=== PATIENT | female | born 1955 | race Caucasian/White ===

== ENCOUNTER 2016-12-31 16:21 | Emergency (ER) | payer BC, OTHER ==
--- NOTE | 2016-12-31 17:06 | EDM.PDOC ---
ED HPI GENERAL MEDICAL PROBLEM - General Chief Complaint: SAUTE CHEF Problem Stated Complaint: ABNORMAL VAGINAL BLEEDING Time Seen by Provider: 12/31/16 17:05 Source of Information: Reports: Patient History Limitations: Reports: No Limitations - History of Present Illness INITIAL COMMENTS - FREE TEXT/NARRATIVE: 61-year-old female presents for evaluation and treatment of possible vaginal bleeding. On further investigation this sounds more like it is more hematuria. Reports that she only has appreciated bleeding with urination. She reports that the symptoms started suddenly today. She reports malaise, fatigue and headaches for the last couple of weeks. She also reports back pain but reports that she has chronic back pain and back surgeries, nothing out the normal. She denies any fevers, nausea, vomiting, abdominal pain or any dysuria. Patient had a hysterectomy in 2004. She reports that her ovaries are still in place. - Related Data Allergies Allergy/AdvReac Type Severity Reaction Status Date / Time pork derived (porcine) Allergy Bleeding Verified 12/31/16 16:27 red meat Allergy Bleeding Uncoded 12/31/16 16:27 Home Meds: Home Meds Aspirin [Ecotrin] 81 mg PO DAILY 12/31/16 [History] Past Medical History Musculoskeletal History: Reports: Back Pain, Chronic, Other (See Below) Other Musculoskeletal History: back surgery - Past Surgical History Female Surgical History: Reports: Hysterectomy Social & Family History - Tobacco Use Smoking Status *Q: Unknown Ever Smoked ED ROS GENERAL - Review of Systems Review Of Systems: See Below Constitutional: Reports: Malaise, Fatigue. Denies: Fever, Chills GI/Abdominal: Denies: Abdominal Pain, Nausea, Vomiting : Reports: Hematuria. Denies: Dysuria Musculoskeletal: Reports: Back Pain (chronic, no change from baseline) Neurological: Reports: Headache ED EXAM, RENAL/ - Physical Exam Exam: See Below Exam Limited By: No Limitations General Appearance: Alert, WD/WN, No Apparent Distress Ears: Normal External Exam Nose: Normal Inspection Throat/Mouth: Normal Inspection, Normal Voice, No Airway Compromise Respiratory/Chest: No Respiratory Distress, Lungs Clear, Normal Breath Sounds Cardiovascular: Normal Peripheral Pulses, Regular Rate, Rhythm, No Murmur GI/Abdominal: Normal Bowel Sounds, Soft, Non-Tender (Female) Exam: Normal External Exam, Normal Speculum Exam. No: Vaginal Bleeding Neurological: Alert, Oriented, Normal Cognition Psychiatric: Normal Affect, Normal Mood Skin Exam: Warm, Dry, Normal Color Course - Vital Signs Last Recorded V/S: Last Vital Signs Temp 36.7 C 12/31/16 16:28 Pulse 76 12/31/16 16:28 Resp BP Pulse Ox 97 12/31/16 16:28 - Orders/Labs/Meds Orders: Active Orders 24 hr Category Date Time Status Pelvic Exam, Set Up [RC] ASDIRECTED Care 12/31/16 16:44 Active CULTURE URINE [RM] Stat Lab 12/31/16 16:30 Received Labs: Laboratory Tests 12/31/16 12/31/16 12/31/16 Range/Units 16:30 17:43 17:43 WBC 13.28 H (3.98-10.04) K/mm3 RBC 3.47 L (3.98-5.22) M/mm3 Hgb 11.2 (11.2-15.7) gm/L Hct 33.3 L (34.1-44.9) % MCV 96.0 H (79.4-94.8) fl MCH 32.3 H (25.6-32.2) pg MCHC 33.6 (32.2-35.5) g/dl RDW Std Deviation 43.7 (36.4-46.3) fL Plt Count 317 (182-369) K/mm3 MPV 9.1 L (9.4-12.3) fl Neut % (Auto) 78.5 H (34.0-71.1) % Lymph % (Auto) 13.1 L (19.3-51.7) % [place] % (Auto) 7.2 (4.7-12.5) % Eos % (Auto) 0.8 (0.7-5.8) Baso % (Auto) 0.2 (0.1-1.2) % Neut # (Auto) 10.45 H (1.56-6.13) K/mm3 Lymph # (Auto) 1.74 (1.18-3.74) K/mm3 [place] # (Auto) 0.95 H (0.24-0.36) K/mm3 Eos # (Auto) 0.10 (0.04-0.36) K/mm3 Baso # (Auto) 0.02 (0.01-0.08) K/mm3 Sodium 145 (136-145) mEq/L Potassium 3.2 L (3.5-5.1) mEq/L Chloride 108 H (98-107) mEq/L Carbon Dioxide 27 (21-32) mEq/L Anion Gap 13.2 (5-15) BUN 16 (7-18) mg/dL Creatinine 0.8 (0.55-1.02) mg/dL Est Cr Clr Drug Dosing TNP Estimated GFR (MDRD) > 60 (>60) mL/min BUN/Creatinine Ratio 20.0 H (14-18) Glucose 105 (80-115) mg/dL Calcium 8.9 (8.5-10.1) mg/dL Total Bilirubin 0.4 (0.2-1.0) mg/dL AST 19 (15-37) U/L ALT 20 (14-59) U/L Alkaline Phosphatase 73 (46-116) U/L Total Protein 7.2 (6.4-8.2) g/dl Albumin 3.7 (3.4-5.0) g/dl Globulin 3.5 gm/dL Albumin/Globulin Ratio 1.1 (1-2) Urine Color Red H (Yellow) Urine Appearance Cloudy H (Clear) Urine pH 5.0 (5.0-8.0) Ur Specific [place] 1.015 (1.005-1.030) Urine Protein 3+ H (Negative) Urine Glucose (UA) Trace H (Negative) Urine Ketones 3+ H (Negative) Urine Occult Blood 3+ H (Negative) Urine Nitrite Negative (Negative) Urine Bilirubin 3+ H (Negative) Urine Urobilinogen 4.0 H (0.2-1.0) Ur Leukocyte Esterase 3+ H (Negative) Urine RBC Too numerous to cnt H (0-5) /hpf Urine WBC 10-20 H (0-5) /hpf Ur Epithelial Cells 0-5 (0-5) /hpf Urine Bacteria Moderate H (FEW) /hpf Urine Mucus Not seen (FEW) /hpf - Re-Assessments/Exams Free Text/Narrative Re-Assessment/Exam: 12/31/16 18:28 I reviewed the lab results with the patient. Her urine is sent for culture. Patient has a urinary tract infection. I will start her on Bactrim twice a day for 7 days. Follow-up with her primary care provider for symptoms do not improve with the Bactrim. Departure - Departure Time of Disposition: 18:28 Disposition: Home, Self-Care 01 Condition: Fair Clinical Impression: Urinary tract infection - Discharge Information Instructions: Urinary Tract Infection, Adult, [id number] Referrals: Ferdinand Carr MD [Primary Care Provider] - Forms: ED Department Discharge Additional Instructions: bactrim 1 tab PO bid x 7 days prescription given from [facility] Take the Bactrim as prescribed. 1 tab twice a day for 7 days. make sure you are drinking plenty of fluids. Follow up with your primary care provider if your symptoms do not improve within 1 week. Please return to the ER if your symptoms change or worsen. - My Orders Last 24 Hours: My Active Orders 12/31/16 16:30 CULTURE URINE [RM] Stat 12/31/16 16:44 Pelvic Exam, Set Up [RC] ASDIRECTED - Assessment/Plan Last 24 Hours: My Active Orders 12/31/16 16:30 CULTURE URINE [RM] Stat 12/31/16 16:44 Pelvic Exam, Set Up [RC] ASDIRECTED
== END 2016-12-31 18:40 | disposition home or self-care (01) ==
LOC: JD.ED 16:21
DX: N39.0 Urinary tract infection, site not specified (principal); Z79.82 Long term (current) use of aspirin
CPT/HCPCS: 36415; 80053; 81001; 85025; 87086; 87088; 87186; 99283

== ENCOUNTER 2017-05-06 20:13 | Emergency (ER) | payer OTHER ==
[2017-05-06] MEDS ORDERED: HYDROmorphone 1 MG/ML Syringe IVPUSH ONE ×2 (20:47→23:07)
--- NOTE | 2017-05-06 20:47 | EDM.PDOC ---
ED HPI GENERAL MEDICAL PROBLEM - General Chief Complaint: Abdominal Pain Stated Complaint: COLON PROBLEMS Time Seen by Provider: 05/06/17 20:40 Source of Information: Reports: Patient History Limitations: Reports: No Limitations - History of Present Illness INITIAL COMMENTS - FREE TEXT/NARRATIVE: 61-year-old female presents to the ED with increasing diffuse lower abdominal pain over the last several days. She states she's been having lower abdominal pain primarily in the left lower quadrant off and on for the better part of 2 weeks. She went to the clinic on Sunday as the pain was worsening and had x- rays and labs done. It was felt that she had diverticulitis clinically and she' s had this apparently in the past on at least 2 occasions. She was therefore started on Cipro and Flagyl orally. Over the last 36 hours pain has increased in intensity with loss of appetite. No noted fever or chills. She cannot stand erect walk. Every bump in the road in the way to the hospital hurt her lower abdomen. He states she's not passing any flatus per rectum for the last 8 hours. Spelled the wound was this morning and was loose without blood. One every 4 hours. Previous abdominal surgery includes total abdominal hysterectomy but both ovaries were retained. No pain in her back. Pain is across the lower abdomen and she is able to localize it well to the left lower quadrant. Onset: Gradual Onset Date: 04/26/17 (She's been having intermittent lower abdominal pain for the last 2 weeks. It got much worse 5 days ago and she attended the clinic as an outpatient on Sunday, May 04.) Duration: Day(s):, Constant, Getting Worse Location: Reports: Abdomen (Left lower quadrant and diffuse across both suprapubic and right lower quadrant of the abdomen.) Quality: Reports: Ache, Other Severity: Severe (Worse with movement or deep breathing or coughing. Currently pain is 8 out of 10.) Improves with: Reports: Rest (Better if she lies on her right side.) Worsens with: Reports: Other (Coughing), Movement Context: Denies: Activity, Exercise, Lifting, Sick Contact, Trauma, Other Associated Symptoms: Reports: Loss of Appetite, Nausea/Vomiting (Nausea without vomiting she states the nausea predated the start of use of Flagyl.). Denies: No Other Symptoms, Confusion, cough w sputum, Diaphoresis, Fever/Chills, Headaches, Rash Treatments [employer]: Reports: Other (see below) (Currently on Flagyl and Cipro for suspect diverticulitis) Abdominal Pain Score (Numeric/FACES): 10 - Related Data Allergies Allergy/AdvReac Type Severity Reaction Status Date / Time pork derived (porcine) Allergy Bleeding Verified 05/06/17 20:22 red meat Allergy Bleeding Uncoded 05/06/17 20:22 Home Meds: Home Meds Ciprofloxacin HCl [Cipro] 500 mg PO BID 05/06/17 [History] metroNIDAZOLE [Flagyl] 500 mg PO TID 05/06/17 [History] Past Medical History Gastrointestinal History: Reports: Other (See Below) Other Gastrointestinal History: diverticulitis Musculoskeletal History: Reports: Back Pain, Chronic, Other (See Below) Other Musculoskeletal History: back surgery - Past Surgical History GI Surgical History: Reports: Colonoscopy Female Surgical History: Reports: Hysterectomy Social & Family History - Tobacco Use Smoking Status *Q: Never Smoker - Caffeine Use Caffeine Use: Reports: Coffee - Recreational Drug Use Recreational Drug Use: No - Living Situation & Occupation Living situation: Reports: Occupation: Employed ED ROS GENERAL - Review of Systems Review Of Systems: See Below Constitutional: Reports: Malaise, Weakness, Fatigue, Decreased Appetite, Weight Loss. Denies: Fever, Chills HEENT: Reports: No Symptoms Respiratory: Reports: No Symptoms Cardiovascular: Reports: No Symptoms Endocrine: Reports: Fatigue GI/Abdominal: Reports: Abdominal Pain (See history present illness), Diarrhea ( Loose stools this morning. No blood), Nausea. Denies: Vomiting : Reports: No Symptoms Musculoskeletal: Reports: No Symptoms Skin: Reports: No Symptoms Neurological: Reports: No Symptoms Psychiatric: Reports: No Symptoms Hematologic/Lymphatic: Reports: No Symptoms Immunologic: Reports: No Symptoms ED EXAM, GI/ABD - Physical Exam Exam: See Below Exam Limited By: No Limitations General Appearance: Alert, WD/WN, Mild Distress (Looks to be in significant discomfort.) Eyes: Bilateral: Normal Appearance (No jaundice.) Throat/Mouth: Other Head: Atraumatic, Normocephalic (Tongue is dry and coated.) Neck: Normal Inspection, Supple, Non-Tender, Full Range of Motion. No: Lymphadenopathy (L), Lymphadenopathy (R) Respiratory/Chest: No Respiratory Distress, Lungs Clear, Normal Breath Sounds, Chest Non-Tender Cardiovascular: Normal Peripheral Pulses, Regular Rate, Rhythm, No Edema, No Gallop, No Murmur, No Rub GI/Abdominal Exam: Guarding (Left lower quadrant), Rebound ( evidence of peritonitis.), Tender (Marked tenderness left lower quadrant and then with guarding rebound tenderness and), Abnormal Bowel Sounds (Hypoactive bowel sounds.), Other (Clinically has an acute abdomen. Localizes to the left lower quadrant therefore highly suspect for sigmoid diverticulitis) Back Exam: Normal Inspection, Full Range of Motion, CVA Tenderness (L) (Mild tenderness left costovertebral angle.). No: CVA Tenderness (R) Extremities: Normal Inspection, Normal Range of Motion, Non-Tender, No Pedal Edema Neurological: Alert, Oriented, CN II-XII Intact, Normal Cognition Psychiatric: Normal Affect, Normal Mood Skin Exam: Warm, Dry, Intact, Normal Color, No Rash EKG INTERPRETATION EKG Date: 05/06/17 Time: 21:20 Rhythm: NSR Rate (Beats/Min): 65 [place]: Normal P-Wave: Present QRS: Other (There is a near Q-wave V1 and V2 and V3. Consider old anteroseptal myocardial infarction) ST-T: Normal QT: Prolonged (Prolonged for rate.) EKG Interpretation Comments: Abnormal ECG Course - Vital Signs Last Recorded V/S: Last Vital Signs Temp 36.8 C 05/07/17 00:18 Pulse 68 05/06/17 20:22 Resp 16 05/07/17 00:18 BP 127/84 05/07/17 00:18 Pulse Ox 94 L 05/07/17 00:18 - Orders/Labs/Meds Orders: Active Orders 24 hr Category Date Time Status EKG Documentation Completion [RC] STAT Care 05/06/17 20:49 Inactive EKG Documentation Completion [RC] STAT Care 05/06/17 20:51 Active Abdomen 1V Flat [CR] Stat Exams 05/06/17 20:49 Taken Abdomen Pelvis w Cont [CT] Stat Exams 05/06/17 21:40 Taken Chest 1V Frontal [CR] Stat Exams 05/06/17 20:49 Taken CULTURE BLOOD [BC] Stat Lab 05/06/17 21:07 Received CULTURE BLOOD [BC] Stat Lab 05/06/17 21:17 Received Blood Culture x2 Reflex Set [OM.PC] Stat Oth 05/06/17 20:51 Ordered Labs: Laboratory Tests 05/06/17 05/06/17 05/06/17 Range/Units 21:07 21:07 21:07 WBC 12.92 H (3.98-10.04) K/mm3 RBC 4.34 (3.98-5.22) M/mm3 Hgb 13.6 (11.2-15.7) gm/L Hct 39.7 (34.1-44.9) % MCV 91.5 (79.4-94.8) fl MCH 31.3 (25.6-32.2) pg MCHC 34.3 (32.2-35.5) g/dl RDW Std Deviation 42.4 (36.4-46.3) fL Plt Count 384 H (182-369) K/mm3 MPV 8.8 L (9.4-12.3) fl Neutrophils % (Manual) 86 H (40-60) % Band Neutrophils % 0 (0-10) % Lymphocytes % (Manual) 10 L (20-40) % Atypical Lymphs % 0 % Monocytes % (Manual) 3 (2-10) % Eosinophils % (Manual) 0 L (0.7-5.8) % Basophils % (Manual) 1 (0.1-1.2) Platelet Estimate Adequate Plt Morphology Comment Normal RBC Morph Comment Normal ESR 103 H (0-20) mm/hr PT (8.0-13.0) SECONDS INR APTT (22-36) SECONDS Sodium 140 (136-145) mEq/L Potassium 3.6 (3.5-5.1) mEq/L Chloride 104 (98-107) mEq/L Carbon Dioxide 23 (21-32) mEq/L Anion Gap 16.6 H (5-15) BUN 13 (7-18) mg/dL Creatinine 0.7 (0.55-1.02) mg/dL Est Cr Clr Drug Dosing 79.01 mL/min Estimated GFR (MDRD) > 60 (>60) mL/min BUN/Creatinine Ratio 18.6 H (14-18) Glucose 122 H (80-115) mg/dL Calcium 8.8 (8.5-10.1) mg/dL Total Bilirubin 0.2 (0.2-1.0) mg/dL AST 13 L (15-37) U/L ALT 18 (14-59) U/L Alkaline Phosphatase 85 (46-116) U/L C-Reactive Protein 15.4 H* (<1.0) mg/dL Total Protein 7.7 (6.4-8.2) g/dl Albumin 3.1 L (3.4-5.0) g/dl Globulin 4.6 gm/dL Albumin/Globulin Ratio 0.7 L (1-2) Urine Color (Yellow) Urine Appearance (Clear) Urine pH (5.0-8.0) Ur Specific [place] (1.005-1.030) Urine Protein (Negative) Urine Glucose (UA) (Negative) Urine Ketones (Negative) Urine Occult Blood (Negative) Urine Nitrite (Negative) Urine Bilirubin (Negative) Urine Urobilinogen (0.2-1.0) Ur Leukocyte Esterase (Negative) Urine RBC (0-5) /hpf Urine WBC (0-5) /hpf Ur Epithelial Cells (0-5) /hpf Urine Bacteria (FEW) /hpf Urine Mucus (FEW) /hpf 05/06/17 05/06/17 Range/Units 21:07 21:45 WBC (3.98-10.04) K/mm3 RBC (3.98-5.22) M/mm3 Hgb (11.2-15.7) gm/L Hct (34.1-44.9) % MCV (79.4-94.8) fl MCH (25.6-32.2) pg MCHC (32.2-35.5) g/dl RDW Std Deviation (36.4-46.3) fL Plt Count (182-369) K/mm3 MPV (9.4-12.3) fl Neutrophils % (Manual) (40-60) % Band Neutrophils % (0-10) % Lymphocytes % (Manual) (20-40) % Atypical Lymphs % % Monocytes % (Manual) (2-10) % Eosinophils % (Manual) (0.7-5.8) % Basophils % (Manual) (0.1-1.2) Platelet Estimate Plt Morphology Comment RBC Morph Comment ESR (0-20) mm/hr PT 12.0 (8.0-13.0) SECONDS INR 1.09 APTT 31 (22-36) SECONDS Sodium (136-145) mEq/L Potassium (3.5-5.1) mEq/L Chloride (98-107) mEq/L Carbon Dioxide (21-32) mEq/L Anion Gap (5-15) BUN (7-18) mg/dL Creatinine (0.55-1.02) mg/dL Est Cr Clr Drug Dosing mL/min Estimated GFR (MDRD) (>60) mL/min BUN/Creatinine Ratio (14-18) Glucose (80-115) mg/dL Calcium (8.5-10.1) mg/dL Total Bilirubin (0.2-1.0) mg/dL AST (15-37) U/L ALT (14-59) U/L Alkaline Phosphatase (46-116) U/L C-Reactive Protein (<1.0) mg/dL Total Protein (6.4-8.2) g/dl Albumin (3.4-5.0) g/dl Globulin gm/dL Albumin/Globulin Ratio (1-2) Urine Color Yellow (Yellow) Urine Appearance Clear (Clear) Urine pH 7.0 (5.0-8.0) Ur Specific [place] 1.025 (1.005-1.030) Urine Protein Negative (Negative) Urine Glucose (UA) Negative (Negative) Urine Ketones 1+ H (Negative) Urine Occult Blood 2+ H (Negative) Urine Nitrite Negative (Negative) Urine Bilirubin Negative (Negative) Urine Urobilinogen 0.2 (0.2-1.0) Ur Leukocyte Esterase Negative (Negative) Urine RBC 10-20 H (0-5) /hpf Urine WBC 0-5 (0-5) /hpf Ur Epithelial Cells Not seen (0-5) /hpf Urine Bacteria Not seen (FEW) /hpf Urine Mucus Few (FEW) /hpf Meds: Medications Discontinued Medications Generic Name Dose Route Start Last Admin Trade Name Freq PRN Reason Stop Dose Admin Diatrizoate Meglum/Diatrizoate Sod 90 ml 05/06/17 22:55 05/06/17 23:30 Gastrografin 37% PO 05/06/17 22:56 90 ml ONETIME ONE Administration Hydromorphone HCl 0.5 mg 05/06/17 20:47 05/06/17 21:08 Dilaudid IVPUSH 05/06/17 20:48 0.5 mg ONETIME ONE Administration Hydromorphone HCl 0.5 mg 05/06/17 23:07 05/06/17 23:07 Dilaudid IVPUSH 05/06/17 23:08 0.5 mg ONETIME ONE Administration Hydromorphone HCl 1 mg 05/07/17 00:04 05/07/17 00:14 Dilaudid IVPUSH 05/07/17 00:05 1 mg ONETIME ONE Administration Dextrose/Sodium Chloride 1,000 mls @ 999 mls/hr 05/06/17 21:00 05/06/17 21:07 Dextrose 5%-Normal Saline IV 999 mls/hr ASDIRECTED LUIS ENRIQUE Administration Cefepime HCl 2 gm/ Premix 50 mls @ 100 mls/hr 05/07/17 00:02 05/07/17 00:15 IV 05/07/17 00:31 100 mls/hr ONETIME ONE Administration Iopamidol 100 ml 05/06/17 22:55 05/06/17 23:30 Isovue-300 (61%) IVPUSH 05/06/17 22:56 100 ml ONETIME ONE Administration Metoclopramide HCl 7.5 mg 05/06/17 20:48 05/06/17 21:09 Reglan IVPUSH 05/06/17 20:49 7.5 mg ONETIME ONE Administration Sodium Chloride 10 ml 05/06/17 22:55 05/06/17 23:30 Saline Flush FLUSH 05/06/17 22:56 10 ml ONETIME ONE Administration - Radiology Interpretation Free Text/Narrative:: 61-year-old female presents to the ED with increasing lower abdominal pain for at least 5-6 days. She states she's been having intermittent abdominal pain for the better part of 2 weeks. Over the last 5 days the pain has increased in intensity and is becoming more constant in the left lower quadrant. She was seen through the walk-in clinic at [facility] on Sunday late in the evening. X-ray and labs were done. It is suspect that she was exhibiting signs and symptoms of diverticulitis is him started on Flagyl and Cipro. Subsequently she has had increasing abdominal pain with complete loss of appetite over the last 24 hours. She doesn't feel like she's passing any flatus last 8 hours. One stool this morning was quite loose. She has associated nausea without vomiting. Hurts to stand erect. On examination she has marked pain with rebound and guarding left lower quadrant with signs and symptoms of peritonitis in the lower abdomen. I.e. acute abdomen. Plan 1 view chest one view abdomen to be done. If no free air is visualized will then proceed to CT abdomen with oral and IV contrast. IV will be D5 normal saline at open. Given Dilaudid 0.5 mg IV for pain relief with Reglan 7.5 mg IV for nausea relief. Routine labs including blood cultures 2 ordered. Urinalysis of one becomes available. She reorts she' s only voided once so far today .unfortunately our hospitals on diversion at this time and patient will have to be transferred to a larger facility if surgery is required. - Re-Assessments/Exams Free Text/Narrative Re-Assessment/Exam: 05/06/17 21:21 one view chest x-ray one view the abdomen have yet to be done. 05/06/17 22:34 labs are now back.White count is 12.92 with a left shift of 86% neutrophils and no band cells reported. Hemoglobin is 13.6 with hematocrit of 39.7. Platelet count is 384,000. Sedimentation rate is 103. PT is 12.0 with an INR 1.09. PTT is 31. Sodium is 140 with potassium of 3.6. Chloride 104 with a bicarbonate of 23. And a gap mildly elevated at 16.6. BUN is 13 with a creatinine of 0.7. GFR is greater than 60. BUN/creatinine ratio is mildly elevated at 18.6. Glucose is 122. Calcium 8.8. Bilirubin 0.2. Liver function normal. C-reactive protein elevated at 15.4. Total protein 7.7 with an albumin fraction slightly low at 3.1. Urinalysis shows 1+ ketones 2+ occult blood and 10 -20 RBCs per high-power field. 05/07/17 00:04 CT of the abdomen and pelvis has been completed. It confirms clinical suspicion of sigmoid colonic diverticulitis. There is a large amount of inflammatory changes around days mid sigmoid diverticulum. No mention of abscess or free air identified. Appendix is not well visualized but there are no periappendiceal changes to suggest infection in this area. Because we are on diversion the patient will be transferred to [facility]. I will give her a dose of cefepime 2 g IV. Also be given a milligram of Dilaudid for pain relief as it's currently 8 out of 10. 02/12/18 00:25: Spoke with Dr Pan--hospitalist at [facility] in [facility]. He has accepted care. Patient will travel by private vehicle to that hospital. will drive her. Departure - Departure Time of Disposition: 00:55 Disposition: DC/Tfer to Acute Hospital 02 Condition: Fair Clinical Impression: Diverticulitis large intestine Qualifiers: Diverticulitis bleeding: without bleeding Diverticulitis complication: unspecified complication status Qualified Code(s): K57.32 - Diverticulitis of large intestine without perforation or abscess without bleeding - Discharge Information Instructions: Diverticulitis, [id number] Referrals: PCP,None [Primary Care Provider] - Forms: ED Department Discharge Additional Instructions: Travel to [facility] in [facility] for admission to the hospital.. Dr Pan has accepted care. - My Orders Last 24 Hours: My Active Orders 05/06/17 20:49 EKG Documentation Completion [RC] STAT Abdomen 1V Flat [CR] Stat Chest 1V Frontal [CR] Stat 05/06/17 20:51 EKG Documentation Completion [RC] STAT Blood Culture x2 Reflex Set [OM.PC] Stat 05/06/17 21:07 CULTURE BLOOD [BC] Stat 05/06/17 21:17 CULTURE BLOOD [BC] Stat 05/06/17 21:40 Abdomen Pelvis w Cont [CT] Stat - Assessment/Plan Last 24 Hours: My Active Orders 05/06/17 20:49 EKG Documentation Completion [RC] STAT Abdomen 1V Flat [CR] Stat Chest 1V Frontal [CR] Stat 05/06/17 20:51 EKG Documentation Completion [RC] STAT Blood Culture x2 Reflex Set [OM.PC] Stat 05/06/17 21:07 CULTURE BLOOD [BC] Stat 05/06/17 21:17 CULTURE BLOOD [BC] Stat 05/06/17 21:40 Abdomen Pelvis w Cont [CT] Stat
[2017-05-06] MEDS ORDERED: Metoclopramide 10 MG/2 ML SDV IVPUSH ONE (20:48)
[2017-05-06] MEDS ORDERED: Dextrose 5%-0.9% NaCl 1,000 ML IV SCH (21:00)
[2017-05-06] MEDS ORDERED: Sodium Chloride 0.9% 10 ML Syringe FLUSH ONE (22:55)
[2017-05-06] MEDS ORDERED: Iopamidol 612 MG/ML 100 ML Bottle IVPUSH ONE (22:55)
[2017-05-06] MEDS ORDERED: Diatrizoate Meglumine/Diatrizoate Sodium 37% 120 ML Bottle PO ONE (22:55)
[2017-05-07] MEDS ORDERED: Cefepime 2 GM in Premix Bag 1 BAG IV ONE (00:02)
[2017-05-07] MEDS ORDERED: HYDROmorphone 1 MG/ML Syringe IVPUSH ONE (00:04)
--- NOTE | 2017-05-07 10:06 | CR ---
Abdomen: Supine view of the abdomen was obtained. Comparison: No prior abdominal x-ray, previous CT abdomen and pelvis study of 04/19/13. Calcifications are seen within the pelvis which are compatible with phleboliths. Bowel gas pattern appears within normal limits. Bony structures are unremarkable for the patient's age. Impression: 1. Nothing acute is seen on supine abdominal x-ray. Diagnostic code #2
--- NOTE | 2017-05-07 10:06 | CR ---
Chest: Frontal view of the chest was obtained. Comparison: No prior chest x-ray. Heart size and mediastinum are normal. Lungs are clear. Minimal scoliosis is present within the spine. Impression: 1. Nothing acute is seen on frontal chest x-ray. Diagnostic code #2
--- NOTE | 2017-05-07 10:06 | CT ---
CT abdomen and pelvis Technique: Multiple axial sections were obtained from above the dome of the diaphragm inferiorly through the pubic symphysis. Intravenous and oral contrast has been given. Delayed images were also obtained through the pelvis. Comparison: Previous CT abdomen and pelvis exam of 04/19/13. Findings: Numerous diverticuli are seen within the sigmoid colon. Moderately severe inflammatory is change noted around a portion of the sigmoid colon compatible with diverticulitis. No focal fluid collections of abscess are seen at this time. Small portion of the visualized lung bases shows nothing acute. Several minimal low-density lesions are seen within the liver compatible with minimal cysts. Liver is otherwise unremarkable. Spleen appears within normal limits. Adrenal glands show no nodule. Pancreas is within normal limits. Gallbladder contains no calcified gallstones. Kidneys show symmetric contrast enhancement without hydronephrosis or mass. Aorta shows no aneurysmal dilatation. No retroperitoneal adenopathy is seen. No pelvic mass or adenopathy is seen. Several small cysts are noted within the left ovary. Delayed images show contrast within the distal ureters and bladder. Bone window settings were reviewed which appear within normal limits for the patient's age. Impression: 1. Findings compatible with moderately severe diverticulitis. No fluid collections of abscess seen at this time. 2. Several small cysts within the left ovary which are likely incidental. 3. Several minimal cysts within the liver as an incidental note. Diagnostic code #5 Agree with preliminary report issued by [facility] ([facility] preliminary report dictated on 05/07/17, 12:52 Central Time)
== END 2017-05-07 01:10 ==
LOC: JD.ED 20:13
DX: K57.32 Diverticulitis of large intestine without perforation or abscess without bleeding (principal); Z91.018 Allergy to other foods
CPT/HCPCS: 36415; 71045; 74018; 74177; 80053; 81001; 85025; 85610; 85652; 85730; 86140; 87040; 93005; 96361; 96365; 96375; 96376; 99285; J0692; J1170; J2765; J7042; J7050; Q9963; Q9967; 87077; 93010

== ENCOUNTER 2021-08-11 08:57 | Day surgery (SDC) | payer MEDICARE, OTHER ==
[2021-08-11] MEDS: Polymyxin B/Trimethoprim 10 ML Bottle EYELF SCH ×3 (08:46→10:42)
[2021-08-11] MEDS: Brimonidine 0.2% Ophth Soln 5 ML Bottle EYELF SCH ×3 (08:53→10:42)
[~2021-08-11 08:57] MED LIST: Cefuroxime 10 MG/ML SYRINGE EYELF SCH; Lidocaine 1% PF 2 ML SDV INJECT SCH; Pilocarpine 4% Ophth Soln 15 ML Bot EYELF SCH
[2021-08-11] MEDS: Phenylephrine 2.5% Ophth Soln 2 ML Bot EYELF SCH ×5 (09:00→10:19)
[2021-08-11] MEDS: Tropicamide 1% Ophth Soln 15 ML Bottle EYELF SCH ×4 (09:05→09:58)
[2021-08-11] MEDS: Tetracaine HCl/PF 0.5% 4 ML Bottle EYEBOTH SCH ×4 (10:07→10:24)
== END 2021-08-11 10:50 | disposition home or self-care (01) ==
LOC: JD.SDS 08:57
PROVIDERS: ATTEND Ophthalmology
DX: H25.813 Combined forms of age-related cataract, bilateral (principal); H16.223 Keratoconjunctivitis sicca, not specified as Sjogren's, bilateral; H35.372 Puckering of macula, left eye; H02.834 Dermatochalasis of left upper eyelid; H02.831 Dermatochalasis of right upper eyelid; Z98.890 Other specified postprocedural states; Z79.899 Other long term (current) drug therapy; Z88.8 Allergy status to other drugs, medicaments and biological substances
CPT/HCPCS: 66984; C1780; J0697

== ENCOUNTER 2021-09-15 12:11 | Day surgery (SDC) | payer MEDICARE, OTHER ==
[2021-09-15] MEDS: Polymyxin B/Trimethoprim 10 ML Bottle EYERT SCH ×4 (12:32→14:20)
[2021-09-15] MEDS: Brimonidine 0.2% Ophth Soln 5 ML Bottle EYERT SCH ×4 (12:38→14:20)
[2021-09-15] MEDS: Phenylephrine 2.5% Ophth Soln 2 ML Bot EYERT SCH ×6 (12:42→13:59)
[2021-09-15] MEDS: Tropicamide 1% Ophth Soln 15 ML Bottle EYERT SCH ×4 (12:47→13:28)
[2021-09-15] MEDS: Cefuroxime 10 MG/ML SYRINGE EYERT SCH ×2 (13:34→14:19)
[2021-09-15] MEDS: Lidocaine 1% PF 2 ML SDV INJECT SCH ×2 (13:34→14:08)
[2021-09-15] MEDS: Tetracaine HCl/PF 0.5% 4 ML Bottle EYEBOTH SCH ×5 (13:34→14:07)
[2021-09-15] MEDS: Pilocarpine 4% Ophth Soln 15 ML Bot EYERT SCH ×2 (13:35→14:20)
== END 2021-09-15 14:27 | disposition home or self-care (01) ==
LOC: JD.SDS 12:11
PROVIDERS: ATTEND Ophthalmology
DX: H26.9 Unspecified cataract (principal); I10 Essential (primary) hypertension; Z98.890 Other specified postprocedural states; Z88.8 Allergy status to other drugs, medicaments and biological substances; Z91.018 Allergy to other foods; Z79.899 Other long term (current) drug therapy
CPT/HCPCS: 66984; J0697; C1780